=== PATIENT | female | born 1965 | race Two or more races ===

== ENCOUNTER 2017-06-19 09:44 | Day surgery (SDC) | payer OTHER ==
[2017-06-19] VITALS (12 sets, daily range): BP systolic 108–125; BP diastolic 49–81; PULSE 64–73; RESP 11–20; Ht 165.1 cm; Wt 83.0 kg
[~2017-06-19] VITALS: Ht 165.1 cm; Wt 83.0 kg
[~2017-06-19 09:44] MED LIST: DIPHENHYDRAMINE 50 MG INJ IV PRN; FENTAnyl 50 MCG/ML VIAL IV PRN; HYDR50TA3 PO; HYDROmorphONE (0.2 MG/ML) 10ML SYG IV PRN; LABETALOL HCL 20MG INJ IV PRN; LOSA25TA5 PO; MEPERIDINE 25 MG INJ IV PRN; METOCLOPRAMIDE 10 MG INJ IV PRN; ONDANSETRON 4 MG INJ IV PRN; OXYCODONE/ACETAMINOPHEN (5/325) TAB PO PRN; PROCHLORPERAZINE 10 MG INJ IV PRN; hydrALAzine 20 MG INJ IV PRN
[2017-06-19] MEDS ORDERED: SOD CHLORIDE 0.9% 1,000 ML IV SCH (10:30)
[2017-06-19] MEDS ORDERED: CEFAZOLIN 2 GM/50 ML (PMX) 50 ML IVPB ONE (10:30)
[2017-06-19 11:05] LABS: BASOPHILS % 0.8 % (0.0-2.0); EOSINOPHILS # 0.2 10^3/ul (0.0-0.5); EOSINOPHILS % 5.8 % (0.0-7.0); HEMATOCRIT 37.3 % (37.0-47.0); HEMOGLOBIN 12.2 g/dl (12.0-16.0); LYMPHOCYTES # 1.4 10^3/ul (0.8-2.9); LYMPHOCYTES % 35.3 % (15.0-51.0); MEAN CORPUSCULAR HEMOGLOBIN 28.2 pg (29.0-33.0); MEAN CORPUSCULAR HGB CONC 32.7 g/dl (32.0-37.0); MEAN CORPUSCULAR VOLUME 86.1 fl (82.0-101.0); MONOCYTE # 0.4 10^3/ul (0.3-0.9); MONOCYTES % 8.8 % (0.0-11.0); NEUTROPHILS % 48.8 % (39.0-77.0); PLATELET COUNT 315 10^3/UL (140-415); RED BLOOD COUNT 4.33 10^6/ul (4.20-5.40); RED CELL DISTRIBUTION WIDTH 15.7 % (11.5-14.5)
[2017-06-19 11:24] LABS: INR 0.92; PROTIME 12.4 Sec (12.2-14.2)
[2017-06-19 11:25] LABS: ALBUMIN 4.2 g/dl (3.3-4.9); ALBUMIN/GLOBULIN RATIO 1.27; BILIRUBIN,INDIRECT 0.2 mg/dl (0-1.1); BILIRUBIN,TOTAL 0.2 mg/dl (0.2-1.3); PARTIAL THROMBOPLASTIN TIME 27.6 Sec (25.0-35.0); TOTAL PROTEIN 7.5 g/dl (6.1-8.1)
[2017-06-19 11:37] LABS: CALCIUM 9.8 mg/dl (8.4-10.2); CREATININE 0.59 mg/dl (0.44-1.00); POTASSIUM 4.3 mmol/L (3.5-5.1)
[2017-06-19] MEDS ORDERED: MIDAZOLAM 1 MG/ML 2 ML INJ ONE (12:02)
[2017-06-19] MEDS ORDERED: FENTAnyl 50 MCG/ML VIAL ONE (12:02)
[2017-06-19] MEDS ORDERED: BUPIVACAINE 0.5% (SDV) 30 ML INJ ONE (12:03)
[2017-06-19] MEDS ORDERED: LIDOCAINE 2% (MDV) 20 ML INJ ONE (12:03)
[2017-06-19] MEDS ORDERED: CEFAZOLIN 1 GM INJ ONE (12:06)
[2017-06-19] MEDS ORDERED: METOCLOPRAMIDE 10 MG INJ ONE (12:06)
[2017-06-19] MEDS ORDERED: ONDANSETRON 4 MG INJ ONE (12:06)
[2017-06-19] MEDS ORDERED: LIDOCAINE 2% (SDV) 5 ML INJ ONE (12:06)
[2017-06-19] MEDS ORDERED: PROPOFOL 20 ML ONE (12:06)
[2017-06-19] MEDS ORDERED: HYDROCODONE/APAP (5/325) TAB PO ONE (12:30)
--- NOTE | 2017-06-19 12:36 | OPR ---
Date/Time of Note Date/Time of Note DATE: 06/19/17 TIME: 12:24 Operative Report Procedure Date: Jun 19, 2017 Preoperative Diagnosis left arm masses x 3 Postoperative Diagnosis same Operation Performed 1. excision of left upper arm mass 3 cm mass 5 cm incision 2. excision of left upper forearm mass 2 cm mass 4 cm incision 3. excision of left lower forearm mass 2 cm mass 3 cm incision 4. localized adjacent tissue transfer with the use of skin flaps 24 sq cm defect 5. therapeutic injection of subcutaneous marcaine Surgeon: Maile SAEED Specimens left upper arm mass left upper forearm mass left lower forearm mass Indications This is a 52-year-old female with 3 left arm masses. She required surgical excision. Risks alternatives benefits and percent were discussed with the patient. Patient expresses understanding and consents to the operation. Procedure Description Patient is taken to the OR and prepped and draped in usual sterile fashion surgical timeout is performed IV antibiotics are given. Therapeutic subcutaneous local anthesia is injected into all surgical sites. Transverse incision is made over the left upper arm mass with a 15 blade dissection cautery was carried onto the mass. The mass was circumferentially excised. Due to the tissue defect localized adjacent tissue transfer with these of skin flaps was performed multilayer closure with interrupted 3-0 Vicryl and skin eh attention was paid to the left upper forearm mass. Transverse incision is made with a 15 blade dissection cautery was carried onto the mass. The mass was circumferentially excised with cautery. There is good hemostasis. Due to tissue defect localized adjacent tissue transfer with these of skin flaps were performed multilayer closure with interrupted 3-0 Vicryl and skin eh. Attention was then paid to the left lower forearm mass. Transverse incision is made with a 15 blade over the mass. Dissection cautery was carried onto the mass. The mass circumferentially excised with cautery. There is good hemostasis. Due to tissue defect localized adjacent tissue transfer with the use of skin flaps was performed. Multilayer closure with interrupted 3-0 Vicryl and skin eh was performed. Dry dressings were applied to all surgical sites. Maile SAEED Jun 19, 2017 12:36
--- NOTE | 2017-06-19 19:08 | RADRPT ---
Vent Rate: 60 bpm RR Interval: 0 msec MT Interval: 174 msec QRS Duration: 86 msec QT Interval: 432 msec QTC Interval: 432 msec P-R-T [place]: 60 - 20 - 37 degrees Normal sinus rhythm Normal ECG Electronically Signed By: Dean Moreno [id number]
== END 2017-06-19 14:15 | disposition home or self-care (01) ==
LOC: SDS 09:44
PROVIDERS: ATTEND Surgery
DX: D17.22 Benign lipomatous neoplasm of skin and subcutaneous tissue of left arm (principal); I10 Essential (primary) hypertension
CPT/HCPCS: 14021; 80053; 85025; 85610; 85730; 88307; 93005; J0690; J2250; J2405; J2765; J3010; Z7512; Z7610